=== PATIENT | male | born 1995 | race Caucasian/White ===

== ENCOUNTER 2017-10-03 18:08 | Emergency (ER) | payer OTHER ==
[2017-10-03] MEDS: NS 1,000 ML IV (18:44)
[2017-10-03] MEDS: fentaNYL 100 MCG/2 ML INJECTION (J3010) IV ×2 (18:44→18:56)
[2017-10-03] MEDS: IBUPROFEN 600 MG TAB PO (19:17)
== END 2017-10-03 20:26 | disposition home or self-care (01) ==
LOC: M ED 18:08
DX: S43.001A Unspecified subluxation of right shoulder joint, initial encounter (principal); X50.9XXA Other and unspecified overexertion or strenuous movements or postures, initial encounter; Y92.018 Other place in single-family (private) house as the place of occurrence of the external cause
CPT/HCPCS: J3010

== ENCOUNTER 2018-02-06 06:57 | Emergency (ER) | payer OTHER ==
[2018-02-06] MEDS: NORCO, ANEXSIA 5/325MG TABLET (HYDROcodone/ACETAMINOPHEN) PO (07:32)
== END 2018-02-06 07:43 | disposition home or self-care (01) ==
LOC: M ED 06:57
DX: M25.511 Pain in right shoulder (principal); Z87.828 Personal history of other (healed) physical injury and trauma
CPT/HCPCS: 73030

== ENCOUNTER → 2018-02-16 | Outpatient (CLI) | payer OTHER ==
[~2018-02-16] MED LIST: CONRAY-43 43% 50ML VIAL (Q9960) As Ordered; PROHANCE 279.3MG/ML 5ML VIAL (A9576) As Ordered
== END ==
LOC: M RADPRO 06:29
DX: M24.411 Recurrent dislocation, right shoulder (principal); S43.431S Superior glenoid labrum lesion of right shoulder, sequela; M95.8 Other specified acquired deformities of musculoskeletal system; Y92.89 Other specified places as the place of occurrence of the external cause; Y93.89 Activity, other specified; X58.XXXA Exposure to other specified factors, initial encounter; Y99.8 Other external cause status
CPT/HCPCS: 23350